=== PATIENT | male | born 1980 | race African-American/Black ===

== ENCOUNTER 2021-06-22 06:25 | Emergency (ER) | payer OTHER ==
[~2021-06-22] VITALS: Ht 172.7 cm; Wt 71.7 kg
--- NOTE | 2021-06-22 06:36 | NUR ---
TO ER BED 12. FROM [facility] C/O OF BILATERAL LEG PAIN , PT STATES "I JUST WANT SOMETHING TO EAT". DENIES ANY CHEST PAIN. NOT IN RESPIRATORY DISTRESS. AWAITING MD RAYMOND
--- NOTE | 2021-06-22 07:30 | NUR ---
BREAKFAST PROVIDED, TOLERATED WELL
[2021-06-22] MEDS ORDERED: ACETAMINOPHEN 325 MG TABLET PO ONE (09:00)
[2021-06-22] MEDS ORDERED: ACETAMINOPHEN 325 MG TABLET ONE (09:06)
--- NOTE | 2021-06-22 10:00 | NUR ---
R SHORT LEG POSTERIOR SPLINT APPLIED BY EMT.
[2021-06-22 10:05] VITALS: BP 128/72
== END 2021-06-22 10:06 | disposition home or self-care (01) ==
LOC: ER 06:30
DX: S82.51XA Displaced fracture of medial malleolus of right tibia, initial encounter for closed fracture (principal); Z59.00 Homelessness unspecified; X58.XXXA Exposure to other specified factors, initial encounter; Y93.89 Activity, other specified; Y92.89 Other specified places as the place of occurrence of the external cause; Y99.8 Other external cause status
CPT/HCPCS: 73610-TC; 73630-TC